=== PATIENT | male | born 1995 | race Two or more races ===

== ENCOUNTER 2019-10-13 18:05 | Emergency (ER) | payer SELFPAY ==
[~2019-10-13] VITALS: Ht 175.3 cm; Wt 79.4 kg
[2019-10-13 18:24] VITALS: BP 145/77
== END 2019-10-13 22:15 | disposition left against medical advice (07) ==
LOC: ER 18:06
DX: R07.89 Other chest pain (principal); Z53.21 Procedure and treatment not carried out due to patient leaving prior to being seen by health care provider
CPT/HCPCS: 93005